=== PATIENT | female | born 1960 | race Caucasian/White ===

== ENCOUNTER 2023-01-28 00:37 | Day surgery (SDC) | payer BC, SELFPAY ==
[2023-01-19 13:21] VITALS: BMI 35.2
--- NOTE | 2023-01-28 08:19 | P.HP_ITS ---
History of Present Illness History of Present Illness Consent: Risks, benefits, and alternatives have been discussed and questions answered. Patient agrees to proceed with procedure. Chief complaint: family hx malignant neoplasm of digestive organs Narrative: Latrice Barragan is a 62 year old female Presents for screening colonoscopy. Patient has a prior history of colon polyps in 2017. Family history is significant that her mother had colon cancer. Patient reports that her current weight appetite and bowel movements are normal. She denies abdominal pain. She has had no bleeding. Review of Systems Review of Systems: Review of systems noncontributory. [facility] Past Medical History Medical History Colon polyps Obesity Family History Family History Father Family history of malignant neoplasm Mother Carcinoma of colon Social History Social History Smoking status: Never smoker Second hand tobacco smoke exposure: Yes Alcohol intake: never Substance use: never Substance use type: does not use Living arrangements: with family Occupation/Education: retired Gender identity (if verbalized by the patient): Female Sexual Orientation (if Verbalized by the Patient): Straight or Heterosexual Spiritual care concerns: No Meds Home Medications and Allergies Home Medications Medication Instructions Recorded Confirmed Type bupropion HCl 150 mg 24 hr tablet, 150 mg PO QAM #30 tabs 12/24/20 01/28/23 Rx extended release sodium,potassium,mag sulfates 17.5 See Rx Instructions PO .COMPLEX 01/06/23 01/28/23 Rx gram-3.13 gram-1.6 gram oral soln #354 mL (Suprep Bowel Prep Kit) Centrum Silver 1 tab-cap PO DAILY 01/19/23 01/28/23 History alendronate 70 mg tablet 70 mg PO WEEKLY 01/19/23 01/28/23 History calcium 1 tab-cap PO DAILY 01/19/23 01/28/23 History Allergies Allergy/AdvReac Type Severity Reaction Status Date / Time No Known Allergies Allergy Verified 01/28/23 08:18 Exam Narrative: Physical exam reveals patient to be alert. Vital signs stable. HEENT exam is unremarkable. Patient is anicteric. Lungs are clear to auscultation and percussion. Heart is without murmur or extra sounds. Abdomen bowel sounds are present soft nontender with no organomegaly. Digital external rectal exam is normal. Assessment and Plan Assessment and plan (1) Family history of colon cancer: Code(s): Z80.0 - Family history of malignant neoplasm of digestive organs Status: Acute Assessment and Plan: Patient's mother had colon cancer. For this reason screening colonoscopy advised at 5 year intervals. (2) History of colon polyps: Code(s): Z86.010 - Personal history of colonic polyps Status: Acute Assessment and Plan: Patient has a history of adenomatous colon polyp removed with colon 2017. Plan for surveillance colonoscopy at 5 year intervals.
[2023-01-28 08:21] VITALS: BP 155/109; PULSE 80; RESP 16; TEMP 36.3; O2SAT 96; BMI 34.7
[2023-01-28] MEDS: LACTATED RINGERS 1,000 ML 150 ML IV CONT (08:25)
--- NOTE | 2023-01-28 08:25 | P.PNAN_ITS ---
Anes - Initial Pre Proc Eval Procedure: Operation Date: 01/28/23 09:00 Proposed Procedures p Screening Colonoscopy - Travis Estrada MD Date/Time: 01/28/23 08:25 Surgeon: Travis Estrada MD Pre Op Diagnosis: family hx malignant neoplasm of digestive organs Patient Data Age: 62 Gender: F Height: 1.73 m Weight: 103.5 kg Last Vital Signs Temp 97.4 F L 01/28/23 08:21 Pulse 80 01/28/23 08:21 Resp 16 01/28/23 08:21 BP 155/109 H 01/28/23 08:21 Pulse Ox 96 01/28/23 08:21 O2 Del Method Room Air 01/28/23 08:21 Allergies Allergy/AdvReac Type Severity Reaction Status Date / Time No Known Allergies Allergy Verified 01/28/23 08:18 Home Medications Medication Instructions Recorded Confirmed Type bupropion HCl 150 mg 24 hr tablet, 150 mg PO QAM #30 tabs 12/24/20 01/28/23 Rx extended release sodium,potassium,mag sulfates 17.5 See Rx Instructions PO .COMPLEX 01/06/23 01/28/23 Rx gram-3.13 gram-1.6 gram oral soln #354 mL (Suprep Bowel Prep Kit) Centrum Silver 1 tab-cap PO DAILY 01/19/23 01/28/23 History alendronate 70 mg tablet 70 mg PO WEEKLY 01/19/23 01/28/23 History calcium 1 tab-cap PO DAILY 01/19/23 01/28/23 History Patient hx anesthesia problems: none Family hx anesthesia problems: none Results Review: All pre-operative results and documents have been reviewed as part of the pre- operative evaluation. [facility] Past Medical History Medical History Colon polyps Obesity Family History Family History Father Family history of malignant neoplasm Mother Carcinoma of colon Social History Social History Smoking status: Never smoker Second hand tobacco smoke exposure: Yes Alcohol intake: never Substance use: never Substance use type: does not use Living arrangements: with family Occupation/Education: retired Gender identity (if verbalized by the patient): Female Sexual Orientation (if Verbalized by the Patient): Straight or Heterosexual Spiritual care concerns: No Anes - Eval Final PreProcedure Day of Procedure 01/28/23 08:25 Patient weight: obese Heart: regular rate and rhythm Lungs: clear to auscultation Airway: Mallampati scale class II Neurological: alert and oriented Last oral intake: >/= 8 hours ASA classification: II Emergent: no Anesthetic plan: proceed Anesthesia type and monitoring: general GIVS and standard monitoring Results Review: All pre-operative results and documents have been reviewed as part of the pre-o perative evaluation. Informed Consent: The patient's anesthetic plan and its attendant risks and benefits were discussed with the patient/family/POA. Questions were solicited and answers provided to the satisfaction of the patient/family/POA.
[2023-01-28 09:04] VITALS: BP 120/68; PULSE 74; RESP 23; O2SAT 96
[2023-01-28 09:14] VITALS: BP 125/66; PULSE 70; RESP 18; O2SAT 97
[2023-01-28 09:22] VITALS: BP 129/66; PULSE 64; RESP 16; O2SAT 96
== END 2023-01-28 09:26 | disposition home or self-care (01) ==
PROVIDERS: PCP Family Medicine; Visit Provider Internal Medicine Gastroenterology
PROC: 0DJD8ZZ Inspection of Lower Intestinal Tract, Via Natural or Artificial Opening Endoscopic (ICD-10-PCS; CPT 45378; principal; 2023-01-28 09:00)
DX: Z12.11 Encounter for screening for malignant neoplasm of colon (principal); D12.3 Benign neoplasm of transverse colon; K64.8 Other hemorrhoids; K57.30 Diverticulosis of large intestine without perforation or abscess without bleeding; Z80.0 Family history of malignant neoplasm of digestive organs; E66.9 Obesity, unspecified; Z68.34 Body mass index [BMI] 34.0-34.9, adult
CPT/HCPCS: 45385; 88305; J2704; J7120

== ENCOUNTER 2023-05-09 12:59 | Emergency (ER) | payer BC, SELFPAY ==
[2023-05-09 13:10] VITALS: BP 152/81; PULSE 72; RESP 16; TEMP 37.2; O2SAT 16
--- NOTE | 2023-05-09 13:45 | ED.GENADULT ---
HPI - General Adult General Chief complaint: Eye Problems Stated complaint: right eye problem Time Seen by Provider: 05/09/23 15:03 Source: patient Mode of arrival: ambulatory Limitations: no limitations History of Present Illness HPI narrative: Patient presents for evaluation redness to the right eye that she first noticed yesterday. She states that the redness has progressively worsened since that time. She denies any recent trauma to the eye. She has not been rubbing her eye. She feels a slight increased pressure in the lateral aspect of the right eye. She wears glasses for reading only. She denies any significant visual disturbance. No discharge from the eye. No sensation of foreign body in the eye. She tried using an eye drop for allergies but states symptoms worsened since that time. Related Data Home Medications Medication Instructions Recorded Confirmed Centrum Silver 1 tab-cap PO DAILY 01/19/23 01/28/23 alendronate 70 mg tablet 70 mg PO WEEKLY 01/19/23 01/28/23 calcium 1 tab-cap PO DAILY 01/19/23 01/28/23 Allergies Allergy/AdvReac Type Severity Reaction Status Date / Time No Known Allergies Allergy Verified 05/09/23 13:20 Review of Systems Review of Systems: CONSTITUTIONAL: Denies fever, chills, or sweats. EYES: Reports redness to right eye. Reports increased pressure in right eye. Denies visual disturbance. Denies drainage ENT: Denies rhinorrhea, congestion, sore throat, or otalgia. CARDIOVASCULAR: Denies chest pain, palpitations, or edema. RESPIRATORY: Denies cough or dyspnea. GASTROINTESTINAL: Denies abdominal pain, nausea, vomiting, or diarrhea. GENITOURINARY: Denies dysuria or hematuria. SKIN: Denies rash or itching. MUSCULOSKELETAL: Denies back pain, joint pain, or myalgia. NEUROLOGIC: Denies headache, numbness, dizziness, or weakness. PSYCHIATRIC: Denies anxiety or depression. [facility] Past Medical History Medical History Colon polyps Obesity Osteoporosis Surgical History Surgical History No pertinent past surgical history Family History Family History Father Family history of malignant neoplasm Mother Carcinoma of colon Social History Social History Smoking status: Never smoker Second hand tobacco smoke exposure: Yes Alcohol intake: never Substance use: never Substance use type: does not use Living arrangements: with family Occupation/Education: retired Gender identity (if verbalized by the patient): Female Sexual Orientation (if Verbalized by the Patient): Straight or Heterosexual Spiritual care concerns: No Exam Narrative: GENERAL: Well-appearing, well-nourished, and in no acute distress. HEAD: Normocephalic, atraumatic. EYES: PERRLA and EOMI. Right conjunctival injection. No discharge. There is no dye uptake noted with fluorescein stain and Wood's lamp evaluation ENT: Nares clear, no rhinorrhea or epistaxis. Mucous membranes moist. Oropharynx without tonsillar hypertrophy exudate or other lesions. Bilateral TMs pearly lima nonbulging NECK: Supple. No adenopathy or masses. No carotid bruits or JVD CHEST: Clear to auscultation. No respiratory distress. No wheezes rales or rhonchi HEART: Regular rate and rhythm. No murmur heard. Normal peripheral pulses. ABDOMEN: Soft, nontender, nondistended, normal active bowel sounds. EXTREMITIES: Normal range of motion. No edema. SKIN: Warm, dry, no rash. NEURO: No focal deficits. Alert and oriented x3. PSYCH: Normal mood and affect. Course Course Emergency Course: THIS IS A 63-YEAR-OLD FEMALE WHO PRESENTED FOR EVALUATION OF REDNESS TO THE RIGHT EYE. SHE HAD NO DISCHARGE TO SUGGEST BACTERIAL CONJUNCTIVITIS. SHE HAD NO OTHER ALLERGIC SYMPTOMS TO SUGGEST CORNELL
--- NOTE | 2023-05-09 13:49 | PC.NURSE ---
eye exam set up 1340.
--- NOTE | 2023-05-09 14:10 | PC.NURSE ---
data input clerk in progress of consult with ophthalmology.
--- NOTE | 2023-05-09 15:01 | PC.NURSE ---
aware awaiting call back from ophthamology.
== END 2023-05-09 15:25 | disposition home or self-care (01) ==
PROVIDERS: Emergency Provider Nurse Practitioner; PCP Family Medicine
DX: H10.31 Unspecified acute conjunctivitis, right eye (principal); M81.0 Age-related osteoporosis without current pathological fracture; E66.9 Obesity, unspecified; Z68.39 Body mass index [BMI] 39.0-39.9, adult
CPT/HCPCS: 99213; A9270; G0463

== ENCOUNTER 2023-12-06 17:08 | Emergency (ER) | payer BC, SELFPAY ==
[2023-12-06 17:17] VITALS: BP 155/84; PULSE 74; RESP 20; TEMP 36.8; O2SAT 96
--- NOTE | 2023-12-06 17:50 | ED.URI ---
HPI - URI/Sore Throat General Chief Complaint: Upper Respiratory Infection Stated Complaint: Cough Time Seen by Provider: 12/06/23 17:50 Source: patient Mode of arrival: ambulatory Limitations: no limitations History of Present Illness HPI Narrative: 63-year-old female presents with complaint of cough, chest congestion, sinus congestion, postnasal drainage for the past 2 weeks. Patient reports taking [id number] Delsym with no relief of symptoms. States cough got worse the past week. Afebrile. Some shortness of breath with exertion. Has not called her primary care physician for appointment. All systems reviewed and negative except as noted above. Related Data Home Medications Medication Instructions Recorded Confirmed Centrum Silver 1 tab-cap PO DAILY 01/19/23 12/06/23 calcium 1 tab-cap PO DAILY 01/19/23 12/06/23 Allergies Allergy/AdvReac Type Severity Reaction Status Date / Time No Known Allergies Allergy Verified 12/06/23 17:30 Review of Systems Review of Systems: CONSTITUTIONAL: Denies fever, chills, or sweats. reports fatigue. EYES: Denies visual changes, redness, or discharge. ENT: reports rhinorrhea, congestion. Denies sore throat, or otalgia. CARDIOVASCULAR: Denies chest pain, palpitations, or edema. RESPIRATORY: Reports cough and dyspnea with exertion. GASTROINTESTINAL: Denies abdominal pain, nausea, vomiting, or diarrhea. GENITOURINARY: Denies dysuria or hematuria. SKIN: Denies rash or itching. MUSCULOSKELETAL: Denies back pain, joint pain, or myalgia. NEUROLOGIC: Denies headache, numbness, or weakness. PSYCHIATRIC: Denies anxiety or depression. All other systems reviewed are negative, except as documented in HPI. [facility] Past Medical History Medical History Colon polyps Obesity Osteoporosis Surgical History Surgical History No pertinent past surgical history Family History Family History Father Family history of malignant neoplasm Mother Carcinoma of colon Social History Social History Smoking status: Never smoker Second hand tobacco smoke exposure: Yes Alcohol intake: never Substance use: never Substance use type: does not use Living arrangements: with family Occupation/Education: retired Gender identity (if verbalized by the patient): Female Sexual Orientation (if Verbalized by the Patient): Straight or Heterosexual Spiritual care concerns: No Comments At time of signature, agree with nursing past medical, surgical, social and family history. There is no relevant family history pertinent to the presenting complaint. Exam Narrative: GENERAL: This is a well-nourished, well-developed patient, in no apparent distress. HEAD: normocephalic, atraumatic. EYES: PERRL. Sclera clear/white. Vision is grossly intact. EARS: External ears normal, auditory canals clear and without drainage, Clear fluid bilateral TMs without erythema or perforation. Hearing grossly intact. NOSE: External nose normal with moderate congestion, clear nasal drainage with erythema and swelling to bilateral nares. THROAT: Mucous membranes moist, Erythema with postnasal drainage NECK: Neck supple, non-tender without lymphadenopathy, masses or thyromegaly. CARDIOVASCULAR: Regular rate and rhythm without murmurs, gallops, or rubs. RESPIRATORY: Clear to auscultation. Breath sounds equal bilaterally. No wheezes, rales, or rhonchi. SKIN: warm, Dry, intact with no suspicious lesions or rash, good texture and turgor. NEURO: awake, alert, and oriented to person, place and time. There were no obvious focal neurologic abnormalities. EXTREMITIES: No joint tenderness, effusion, or edema noted. Course Course Level of Care: Express Care Visit Vital Signs Vi
== END 2023-12-06 18:03 | disposition home or self-care (01) ==
PROVIDERS: Emergency Provider Nurse Practitioner Family; PCP Family Medicine
DX: J06.9 Acute upper respiratory infection, unspecified (principal); E66.9 Obesity, unspecified; Z68.36 Body mass index [BMI] 36.0-36.9, adult; M81.0 Age-related osteoporosis without current pathological fracture
CPT/HCPCS: 99213; G0463

== ENCOUNTER 2024-01-10 09:20 | Outpatient (CLI) | payer BC, SELFPAY ==
--- NOTE | ~2024-01-10 | XR_ITS ---
XR chest 2V DATE: 01/10/2024 09:32 INDICATION: Pain TECHNIQUE: 2 views COMPARISON: 06/27/2012 two-view chest FINDINGS: Heart size is within normal range. No hilar or mediastinal enlargement. No pulmonary infilt rate or consolidation, pleural effusion or pulmonary vascular congestion or pneumothorax. IMPRESSION: No active cardiopulmonary disease Reviewed, dictated and finalized at location A.
== END 2024-01-10 09:21 ==
LOC: MICIMG 09:22
PROVIDERS: PCP Family Medicine; Visit Provider Family Medicine
DX: R05.9 Cough, unspecified (principal)
CPT/HCPCS: 71046